=== PATIENT | female | born 1940 | race Caucasian/White ===

== ENCOUNTER 2017-02-16 21:18 | Emergency (ER) | payer OTHER ==
[~2017-02-16] VITALS: Ht 147.3 cm; Wt 66.5 kg
[2017-02-16 21:30] VITALS: BP 164/70; PULSE 72; RESP 20; TEMP 98.8; O2SAT 96
[2017-02-16] MEDS ORDERED: HYDR-3533 PO (21:57)
[2017-02-16] MEDS ORDERED: ACETAMINOPHEN/HYDROcodone 325 MG/5 MG TAB PO ONE (22:00)
--- NOTE | 2017-02-16 22:01 | PD ---
HPI Chief Complaint: Skin Problem Time Seen by Provider: 21:37 Travel History International Travel<30 days: No Contact w/Intl Traveler<30days: No Traveled to known affect area: No History of Present Illness HPI This 76-year-old female is complaining of pain on the right side of her face and scalp. He developed herpes zoster on January 23 of this year. She was treated with acyclovir and was also given a course of prednisone. She had lesions inside her mouth. The lesions have largely dried-up that she is having ongoing pain. She has dysesthesia of the skin involving the right side of the face and scalp. She has been started on gabapentin but is only taking about 300 mg daily. She has seen an multiple needle stitcher on 2 occasions and apparently has no ocular lesions. She is complaining of severe pain. She has recently been found to have a melanoma of the back but is waiting for the shingles to clear up before she has surgery. PFSH Social History Tobacco Use: No Allergies-Medications (Allergen,Severity, Reaction): Coded Allergies: No Known Allergies (Unverified , 02/16/17) Reported Meds & Prescriptions Reported Meds & Active Scripts Active Lortab (Hydrocodone-Acetaminophen) 5-325 Mg Tab 1-2 Tab PO Q6H PRN Review of Systems General / Constitutional: No: Fever, Chills Eyes: No: Diploplia HENT: Positive: Headaches Cardiovascular: No: Chest Pain or Discomfort, Palpitations Respiratory: No: Cough Gastrointestinal: No: Vomiting, Diarrhea Musculoskeletal: Positive: Pain, No: Myalgias Skin: Positive Rash Physical Exam Narrative GENERAL: Well-developed female SKIN: Focused skin assessment warm/dry. Some dried lesions on the right side of the forehead and in the scalp. I don't see any active lesions or vesicles. HEAD: Atraumatic. Normocephalic. EYES: Pupils equal and round. No scleral icterus. No injection or drainage. ENT: No nasal bleeding or discharge. Mucous membranes pink and moist. NECK: Trachea midline. No JVD. MUSCULOSKELETAL: No obvious deformities. No clubbing. No cyanosis. No edema. NEUROLOGICAL: Awake and alert. No obvious cranial nerve deficits. PSYCHIATRIC: Appropriate mood and affect; insight and judgment normal. Data Data Last Documented VS Vital Signs Date Time Temp Pulse Resp B/P Pulse Ox O2 Delivery O2 Flow Rate FiO2 02/16/17 21:30 98.8 72 20 164/70 96 Orders Acetamin-Hydrocod 325-5 Mg ([place] 5-325 (02/16/17 22:00) MDM Medical Decision Making Medical Screen Exam Complete: Yes Emergency Medical Condition: Yes Medical Record Reviewed: Yes Differential Diagnosis Differential includes herpes zoster, postherpetic neuralgia Narrative Course Patient's lesions have largely dried up but she is having ongoing pain consistent with postherpetic neuralgia. He is quite uncomfortable tonight and I will prescribe some Lortab for her pain. I encouraged her to increase her gabapentin and follow up with her own medical doctor. Diagnosis Primary Impression: Postherpetic neuralgia Scripts Hydrocodone-Acetaminophen (Lortab)5-325 Mg Tab1-2 Tab PO Q6H PRN (PAIN) #30 TAB Ref 0 Prov:Marcio Killian MD 02/16/17 Disposition: 01 DISCHARGE HOME Condition: Stable Marcio Killian MD Feb 16, 2017 22:01
[2017-02-16] MEDS ORDERED: COLA100C3 PO (22:20)
[2017-02-16] MEDS ORDERED: MULT-142 PO (22:20)
[2017-02-16] MEDS ORDERED: MAGN1TAB14 PO (22:20)
[2017-02-16] MEDS ORDERED: VITA100021 SL (22:20)
[2017-02-16] MEDS ORDERED: VITA400C59 CHEW (22:20)
[2017-02-16] MEDS ORDERED: ATEN25TA PO (22:20)
[2017-02-16] MEDS ORDERED: CITRTAB7 PO (22:20)
[2017-02-16] MEDS ORDERED: METH4TAB6 PO (22:20)
[2017-02-16] MEDS ORDERED: LOVA10TA PO (22:20)
[2017-02-16] MEDS ORDERED: LUTE40CA2 PO (22:20)
[2017-02-16] MEDS ORDERED: FEXO60TA PO (22:20)
[2017-02-16] MEDS ORDERED: ASCO500C PO (22:20)
[2017-02-16 22:45] VITALS: BP 151/70
== END 2017-02-16 22:47 | disposition home or self-care (01) ==
LOC: PHED 21:18
DX: B02.29 Other postherpetic nervous system involvement (principal)
CPT/HCPCS: 99283

== ENCOUNTER → 2017-03-05 | Day surgery (SDC) | payer OTHER ==
[~2017-03-05] MED LIST: ASCO500C PO; ATEN25TA PO; BUPIVACAINE/EPINEPHRINE 0.5% 50 ML VIAL ONE; CITRTAB7 PO; COLA100C3 PO; FEXO60TA PO; HYDR-3533 PO; LACTATED RINGER'S 1000 ML INJ 1,000 ML ONE; LIDOCAINE 1%/EPINEPHrine 1:100,000 SOLN 20 ML VIAL ONE; LOVA10TA PO; LUTE40CA2 PO; MAGN1TAB14 PO; METH4TAB6 PO; MIDAZOLAM HCL 2 MG/2 ML VIAL ONE; MULT-142 PO; NEOMYCIN/POLYMYXIN/BACITRACIN OINT 15 GM TUBE ONE; ONDANSETRON HCL 4 MG/2 ML VIAL IV PUSH ONE; PROPOFOL 200 MG/20 ML AMP IV ONE; VITA100021 SL; VITA400C59 CHEW
--- NOTE | 2017-03-05 15:35 | TN ---
cc: ISABEL RAVI M.D. DATE OF SURGERY: 03/05/2017 PREOPERATIVE DIAGNOSIS 1. Malignant melanoma to the back. 2. Basal cell carcinoma to the right side of face cheek area. POSTOPERATIVE DIAGNOSIS 1. Malignant melanoma to the back. 2. Basal cell carcinoma to the right side of face cheek area. PROCEDURE 1. Excision of malignant melanoma in situ from mid back resulting in a 12 x 6 cm elliptical defect closed with a double-layer closure. 2. Removal of basal cell carcinoma of the right face/cheek 3 x 1.5 cm elliptical incision with double-layer closure. ANESTHESIA General. SURGEON Dr. Ravi INDICATION This is a pleasant 76-year-old female who was found to have a malignant melanoma on her back. She also had a basal cell to her right face/cheek. Both of these were planned for excision. DETAILS OF PROCEDURE The patient was taken to the operating room and placed in the supine position. After anesthesia she is placed in the left lateral decubitus position. We first direct our attention to the malignant melanoma that had been previously marked. We make an elliptical incision measuring 12 x 6 cm to completely excise this lesion with between a 1.5 and 2 cm margin circumferentially. The elliptical incision is created in a horizontal fashion. The specimen is removed and labeled with a stitch at the 12 o'clock position for orientation. After this was done we then create flaps superiorly and inferiorly to reapproximate the deep layer with 3-0 Vicryl and the skin is closed with 3-0 nylon in interrupted fashion. Sterile bandage is applied. We then prepped the right side of her face with Betadine. An elliptical incision is made overlying this previously biopsied basal cell carcinoma of the right cheek/face area. The elliptical incision measures 3 x 1.5 cm removing the entirety of the specimen. We ned it at the 12 o'clock position for orientation. The deep layer is re-approximated with 3-0 Vicryl and the subcu tissue and the skin is re-approximated with interrupted 4-0 nylon. Sterile bandage is applied. The patient tolerated the procedure well and had no immediate post-op complications. MD Tammi MontoyaKENYETTA/LADONNA /3:21 PM /3:29 PM MTDOscar
== END | disposition home or self-care (01) ==
LOC: ESDC 09:42
PROVIDERS: ATTEND Surgery
DX: C43.59 Malignant melanoma of other part of trunk (principal); C44.319 Basal cell carcinoma of skin of other parts of face
CPT/HCPCS: 00300; 11606; 11643; 12034; 12052; 88305; J2250; J2405; J3010; J7120